=== PATIENT | male | born 1935 | race Caucasian/White ===

== ENCOUNTER 2017-11-09 11:34 | Outpatient (CLI) | payer MEDICARE, OTHER ==
--- NOTE | 2017-11-09 12:48 | Diagnostic Imaging Report ---
Indication: Cough Technique: Multiple views of the maxillofacial sinuses Comparison: none Findings: Exam somewhat limited due to inability to obtain a submental vertical view. There is bilateral maxillary sinus mucosal thickening and evidence of a left maxillary sinus mucous retention cyst versus polyp. The frontal sinuses are underpneumatized. The ethmoid sinuses are grossly clear. The sphenoid sinuses are well demonstrated. The nasal septum is midline. No gross acute fractures. There is evidence of extensive prior dental surgery Impression: Somewhat limited exam, as described Evidence of left maxillary sinus polyposis and bilateral maxillary sinus mucosal thickening
--- NOTE | 2017-11-09 12:49 | Diagnostic Imaging Report ---
Indication: Cough Technique: 2 views of the chest Comparison: Findings: The lungs are hyperinflated. There is a small amount of basilar atelectasis on the left. The lungs and pleural spaces are otherwise clear. There are degenerative changes of the thoracic spine. Impression: Evidence of COPD No definite acute process
== END 2017-11-09 13:34 | disposition home or self-care (01) ==
LOC: RAD 11:34
DX: R05 Cough (principal); J44.9 Chronic obstructive pulmonary disease, unspecified; J33.8 Other polyp of sinus
CPT/HCPCS: 70220; 71046